=== PATIENT | female | born 1970 | race African-American/Black ===

== ENCOUNTER 2016-11-15 13:49 | Emergency (ER) | payer BC ==
[~2016-11-15] VITALS: Ht 160 cm; Wt 130.0 kg
[~2016-11-15 13:49] MED LIST: ACET-1145 PO; ASPI-650 PO; BENA40TA41 PO; CARV25TA79 PO; CPR3OO3.5 RIGHT EYE; CYCL-319 PO; FAMO-18 PO; FLUT16SP24 NASAL; IBUP-1542 PO; LORA-186 PO; LORA-407; LOVA20TA PO; NAPR-260 PO; PARO40TA48 PO; SODI44SP11 NS; TRAM50TA2 PO
[2016-11-15 14:04] VITALS: Ht 160 cm; Wt 130.0 kg
--- NOTE | 2016-11-15 16:53 | ERD ---
ER Documentation Chief Complaint Date/Time DATE: 11/15/16 TIME: 16:33 Chief Complaint SHARP SHOOTING PAIN ON THE RIGHT KNEE HPI This is a 46-year-old female who presents to the ED with right knee pain since this morning. Right knee pain radiates from the lateral to posterior region of the knee. Patient states 1 week ago she heard a popping and crunching noise in the right knee but did not have pain until today. Right knee pain is a 10 out of 10, constant pain since she woke up this morning. Sitting down and resting relieves the pain. She took ibuprofen 1200 mg this morning for pain relief which did not help. 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 Patient also has a limp with walking. Denies fever, headache, back, ankle and hip pain. ROS All systems reviewed and are negative except as per history of present illness. Medications Home Meds Active Scripts Naproxen* (Naprosyn*) 500 Mg Tablet, 500 MG PO BID Y for PAIN AND/OR INFLAMMATION, #30 TAB Prov:AMIE POSEY PA-C 11/15/16 Ibuprofen* (Ibuprofen*) 600 Mg Tablet, 600 MG PO Q8 for PAIN AND/OR INFLAMMATION , #30 TAB Prov:HARRIET IZAGUIRRE MD 07/24/16 Paroxetine Hcl* (Paxil*) 40 Mg Tablet, 40 MG PO QAM, #30 TAB Prov:HARRIET IZAGUIRRE MD 07/24/16 Famotidine* (Pepcid*) 20 Mg Tablet, 20 MG PO BID for 4 Days, TAB Prov:NICOLE STARK PA-C 07/20/16 Naproxen* (Naprosyn*) 500 Mg Tablet, 500 MG PO BID Y for PAIN AND/OR INFLAMMATION, #30 TAB Prov:NICOLE STARK PA-C 07/20/16 Ibuprofen* (Motrin*) 600 Mg Tab, 600 MG PO Q6, #30 TAB Prov:LEIDA LANDERS PA-C 06/03/16 Ciprofloxacin Opht* (Ciloxan*) 0.3%-3.5 Opht Oint, 2 DROP RIGHT EYE TID for 5 Days, EA Prov:LEIDA LANDERS PA-C 06/03/16 Ibuprofen* (Motrin*) 600 Mg Tab, 600 MG PO Q6, #30 TAB Prov:JAVIER REYNA C 01/31/16 Tramadol HCl (Tramadol HCl) 50 Mg Tablet, 50 MG PO Q4 Y for PAIN, #20 TAB Prov:JAVIER REYNA C 01/31/16 Cyclobenzaprine Hcl* (Cyclobenzaprine Hcl*) 10 Mg Tablet, 10 MG PO TID, #15 TAB Prov:SUMAN VASQUEZ CHEMICAL LABORATORY TESTER 07/26/15 Sodium Chloride (Saline Nasal [place]) 45 Ml [place], 1 SPRAY NS q1 Y for congestion , #1 BOTTLE Prov:SUMAN VASQUEZ CHEMICAL LABORATORY TESTER 01/24/15 Fluticasone Propionate* (Flonase* Nasal) 50 Mcg/[place] - 16 Gm [place].susp, 1 SPRAY NASAL DAILY, #1 BOTTLE TO EACH NOSTRIL Prov:SUMAN VASQUEZ CHEMICAL LABORATORY TESTER 01/24/15 Loratadine* (Claritin*) 10 Mg Tablet, 10 MG PO DAILY, #30 TAB Prov:SUMAN VASQUEZ CHEMICAL LABORATORY TESTER 01/24/15 Reported Medications Acetaminophen-Codeine (Tylenol With Codeine #3 Tablet) 1 Tab Tablet, 300 MG PO PRN 05/01/13 Loratadine (Claritin) 10 Mg Tablet, DAILY 09/25/12 Carvedilol* (Carvedilol*) 25 Mg Tablet, 25 MG PO DAILY, 0 Refills 11/20/11 Aspirin (Aspirin) 81 Mg Tablet, 81 MG PO DAILY 11/20/11 Lovastatin* (Lovastatin*) 20 Mg Tablet, 20 MG PO DAILY 08/04/11 Benazepril Hcl* (Benazepril Hcl*) 40 Mg Tablet, 40 MG PO DAILY 08/04/11 Allergies Allergies: Coded Allergies: No Known Allergy (Verified , 07/24/16) PMhx/Soc History of Surgery: Yes (, L. Ankle) Anesthesia Reaction: No Hx Neurological Disorder: No Hx Respiratory Disorders: No Hx Cardiac Disorders: No Hx Psychiatric Problems: No Hx Miscellaneous Medical Probl: No Hx Alcohol Use: No Hx Substance Use: No Hx Tobacco Use: No FmHx Noncontributory to chief complaint. Physical Exam Vitals Vital Signs Date Time Temp Pulse Resp B/P Pulse Ox O2 Delivery O2 Flow Rate FiO2 11/15/16 14:04 98.4 99 18 123/80 98 Physical Exam Const: [id number], well-nourished. In no acute distress. Head: Atraumatic, normocephalic Eyes: Normal Conjunctiva without injection. No purulent discharge. PERRLA. EOMI ENT: Normal external ear. Ear canal without erythema. Tympanic membrane pearly [place] without effusion or bulging. Nasal canal clear with normal turbinates. Moist oropharynx without tonsillar exudates. Non-erythematous pharynx. Uvula midline. No drooling. No trismus. Neck: No cervical midline tenderness. Full range of motion. No meningismus. No cervical lymphadenopathy. No JVD. Resp: Clear to auscultation bilaterally. No wheezing, rhonchi, rales, or crackles. No accessory muscle use. No retractions. Cardio: Regular rate and rhythm. No murmurs, rubs or gallops. Abd: Soft, non tender, non distended. Normal bowel sounds. No palpable masses. No rebound tenderness. No guarding. Negative McBurney's Point. Negative Smyth's Sign. Skin: Normal skin turgor. No petechiae or rashes Back: No midline tenderness. No CVA tenderness. Ext: No cyanosis, or edema. Distal pulses intact bilaterally. Musculoskeletal: Full ROM 0 to 140 degrees bilateral knees, right knee tender to palpation at the lateral joint line to the posterior region, no erythema, no edema, no ecchymosis, no open wounds, negative Nadeen's, negative anterior drawer test, negative posterior drawer test, negative Destini's sign. Neur: Awake and alert. Normal gait. Normal coordination. Cranial Nerves II- VII intact. Normal finger to nose. Muscle strength 5/5. Sensation intact. Psych: Normal Mood and Affect Procedures/MDM This is a 38-year-old female who presents with right knee pain since this morning. Radiograph of the right knee shows: PROCEDURE: Right knee series. CLINICAL INDICATION: Right knee pain TECHNIQUE: Three views of the right knee are available for review. COMPARISON: Right knee series 01/31/2016 FINDINGS: There is normal mineralization and alignment of the bones of the right knee. No acute fracture or dislocation is identified. There is tricompartmental joint space narrowing and osteophyte formation. There is suggestion of a small joint effusion, similar compared to prior study. Overlying soft tissues are otherwise unremarkable. IMPRESSION: 1. 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 2. Suggested small joint effusion. A right knee immobilizer was ordered for patient however we do not have the resource at this time. Therefore an Josué wrap was ordered to further treat patient. Recommend patient to help with ambulation. Splint Assessment: Neurovascularly intact pre and post splint placement with good fit. Patient's extremity symptoms have stabilized while they have been evaluated in the department and are appropriate for outpatient follow up. No evidence of fractures, dislocations, compartment syndrome, neurologic injury, vascular injury, open joint, open fracture, tendon laceration, septic arthritis, osteomyelitis, DVT, foreign body, or other emergent conditions. Discharge medications: Naproxen Follow up with orthopedic physician in 1-2 days for further evaluation with an MRI. Instructed patient to return to the ED sooner for any worsening symptoms. Patient's questions were answered. Patient understood and agreed with discharge plan. Patient discharged stable. Departure Diagnosis: Primary Impression: Knee pain Laterality: right Chronicity: acute Qualified Code: M25.561 - Acute pain of right knee Condition: Good AMIE POSEY PA-C Nov 15, 2016 16:46
--- NOTE | 2016-11-15 16:58 | RADRPT ---
PROCEDURE: Right knee series. CLINICAL INDICATION: Right knee pain TECHNIQUE: Three views of the right knee are available for review. COMPARISON: Right knee series 01/31/2016 FINDINGS: There is normal mineralization and alignment of the bones of the right knee. No acute fracture or d islocation is identified. There is tricompartmental joint space narrowing and osteophyte formation. There is suggestion of a small joint effusion, similar compared to prior study. Overlying soft ti ssues are otherwise unremarkable. IMPRESSION: 1. 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 2. Suggested small joint effusion. RPTAT: KK .Tonio Gibson MD, MD Date Time Electronically viewed and signed by .Tonio Gibson MD, on 11/15/2016 16:57 .B/
[2016-11-15] MEDS ORDERED: NAPR-260 PO (17:46)
== END 2016-11-15 18:08 | disposition home or self-care (01) ==
LOC: FTE 13:49
DX: S89.91XA Unspecified injury of right lower leg, initial encounter (principal); F17.210 Nicotine dependence, cigarettes, uncomplicated; X50.1XXA Overexertion from prolonged static or awkward postures, initial encounter; Y92.9 Unspecified place or not applicable; Z79.82 Long term (current) use of aspirin
CPT/HCPCS: 73562

== ENCOUNTER 2016-11-21 09:22 | Emergency (ER) | payer BC ==
[~2016-11-21] VITALS: Wt 113.6 kg
[2016-11-21] MEDS ORDERED: ONDANSETRON (ODT) 4 MG TAB ODT STA (10:31)
[2016-11-21] MEDS ORDERED: ORPH100T PO (10:57)
[2016-11-21] MEDS ORDERED: HYDR-906 PO (10:59)
[2016-11-21] MEDS ORDERED: MED4DP PO (10:59)
[2016-11-21] MEDS ORDERED: morphine 10 MG INJ IM ONE (11:00)
[2016-11-21] MEDS ORDERED: IBUP-1542 PO (11:00)
[2016-11-21 11:23] VITALS: BP 149/78; PULSE 78; RESP 18; TEMP 98.1
--- NOTE | 2016-11-21 13:06 | ERD ---
ER Documentation Chief Complaint Date/Time DATE: 11/21/16 TIME: 13:03 Chief Complaint legt leg non traumatic pain for the past few days. HPI This is a 46-year-old female presents to the ER with left leg pain that started yesterday. Patient recently had right knee pain and states she has been bearing more weight on her left leg. Pain extends from her buttocks down to the back of her knee. She denies any calf pain or calf swelling or redness. Pain is severe and worse whenever she lays down or walks. Patient denies any new trauma. She denies any numbness or tingling of her leg. 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 ROS 12 point review of systems was done, all negative except per HPI. Medications Home Meds Active Scripts Ibuprofen* (Ibuprofen*) 600 Mg Tablet, 600 MG PO Q6 for 3 Days, TAB Prov:JAVIER REYNA 11/21/16 Hydrocodone/Acetaminophen ([place] 5-325 Tablet) 1 Each Tablet, 1 TAB PO Q6H Y for PAIN, #10 TAB Prov:JAVIER REYNA 11/21/16 Methylprednisolone* (Medrol* DOSE PACK) 4 Mg/Dose-Pack Tab.ds.pk, 4 MG PO . DIRECTED for 6 Days, PACKET Prov:JAVIER REYNA 11/21/16 Orphenadrine Citrate (Norflex) 100 Mg Tablet.sa, 100 MG PO BID for 5 Days, TAB.SA Prov:JAVIER REYNA 11/21/16 Naproxen* (Naprosyn*) 500 Mg Tablet, 500 MG PO BID Y for PAIN AND/OR INFLAMMATION, #30 TAB Prov:AMIE POSEY PA-C 11/15/16 Ibuprofen* (Ibuprofen*) 600 Mg Tablet, 600 MG PO Q8 for PAIN AND/OR INFLAMMATION , #30 TAB Prov:HARRIET IZAGUIRRE MD 07/24/16 Paroxetine Hcl* (Paxil*) 40 Mg Tablet, 40 MG PO QAM, #30 TAB Prov:HARRIET IZAGUIRRE MD 07/24/16 Famotidine* (Pepcid*) 20 Mg Tablet, 20 MG PO BID for 4 Days, TAB Prov:NICOLE STARK PA-C 07/20/16 Naproxen* (Naprosyn*) 500 Mg Tablet, 500 MG PO BID Y for PAIN AND/OR INFLAMMATION, #30 TAB Prov:NICOLE STARK PA-C 07/20/16 Ibuprofen* (Motrin*) 600 Mg Tab, 600 MG PO Q6, #30 TAB Prov:LEIDA LANDERS PA-C 06/03/16 Ciprofloxacin Opht* (Ciloxan*) 0.3%-3.5 Opht Oint, 2 DROP RIGHT EYE TID for 5 Days, EA Prov:LEIDA LANDERS PA-C 06/03/16 Ibuprofen* (Motrin*) 600 Mg Tab, 600 MG PO Q6, #30 TAB Prov:JAVIER REYNA 01/31/16 Tramadol HCl (Tramadol HCl) 50 Mg Tablet, 50 MG PO Q4 Y for PAIN, #20 TAB Prov:JAVIER REYNA 01/31/16 Cyclobenzaprine Hcl* (Cyclobenzaprine Hcl*) 10 Mg Tablet, 10 MG PO TID, #15 TAB Prov:SUMAN VASQUEZ CREDIT UNION FIELD EXAMINER 07/26/15 Sodium Chloride (Saline Nasal [place]) 45 Ml [place], 1 SPRAY NS q1 Y for congestion , #1 BOTTLE Prov:SUMAN VASQUEZ CREDIT UNION FIELD EXAMINER 01/24/15 Fluticasone Propionate* (Flonase* Nasal) 50 Mcg/[place] - 16 Gm [place].susp, 1 SPRAY NASAL DAILY, #1 BOTTLE TO EACH NOSTRIL Prov:SUMAN VASQUEZ. CREDIT UNION FIELD EXAMINER 01/24/15 Loratadine* (Claritin*) 10 Mg Tablet, 10 MG PO DAILY, #30 TAB Prov:SUMAN VASQUEZ CREDIT UNION FIELD EXAMINER 01/24/15 Reported Medications Acetaminophen-Codeine (Tylenol With Codeine #3 Tablet) 1 Tab Tablet, 300 MG PO PRN 05/01/13 Loratadine (Claritin) 10 Mg Tablet, DAILY 09/25/12 Carvedilol* (Carvedilol*) 25 Mg Tablet, 25 MG PO DAILY, 0 Refills 11/20/11 Aspirin (Aspirin) 81 Mg Tablet, 81 MG PO DAILY 11/20/11 Lovastatin* (Lovastatin*) 20 Mg Tablet, 20 MG PO DAILY 08/04/11 Benazepril Hcl* (Benazepril Hcl*) 40 Mg Tablet, 40 MG PO DAILY 08/04/11 Allergies Allergies: Coded Allergies: No Known Allergy (Verified , 07/24/16) PMhx/Soc History of Surgery: Yes (, L. Ankle) Anesthesia Reaction: No Hx Neurological Disorder: No Hx Respiratory Disorders: No Hx Cardiac Disorders: No Hx Psychiatric Problems: No Hx Miscellaneous Medical Probl: No Hx Alcohol Use: Yes Hx Substance Use: No Hx Tobacco Use: No Smoking Status: Never smoker Physical Exam Vitals Vital Signs Date Time Temp Pulse Resp B/P Pulse Ox O2 Delivery O2 Flow Rate FiO2 11/21/16 11:23 98.1 78 18 149/78 98 Room Air 11/21/16 09:25 98.5 95 21 159/98 97 Physical Exam GENERAL: The patient is well developed and appropriate for usual state of health , in no apparent distress. HEENT: Atraumatic CHEST: Clear to auscultation bilaterally. There are no rales, wheezes or rhonchi. HEART: Regular rate and rhythm. No murmurs, clicks, rubs or gallops. BACK: No midline or flank tenderness. EXTREMITIES: patient is TTP along left buttock and down left leg down to the back of the knee. Normal strength and sensation. Neurovascularly intact. Negative straight leg test. NEURO: Alert and oriented. SKIN: There is no apparent rash or petechia. The skin is warm and dry. Results 24 hrs Current Medications Medications (Trade) Dose Ordered Sig/Rodney Route PRN Reason Start Time Stop Time Status Last Admin Dose Admin Morphine Sulfate (morphine) 6 mg ONCE ONCE IM 11/21/16 11:00 11/21/16 11:01 DC 11/21/16 10:48 Ondansetron HCl (Zofran Odt) 4 mg ONCE STAT ODT 11/21/16 10:31 11/21/16 10:32 DC 11/21/16 10:47 Procedures/MDM This is a 46-year-old female presents to the ER with left leg pain. This is likely secondary to overuse that she has been relying on her leg since her right knee has been hurting. Patient is afebrile and well-appearing. She is neurovascularly intact and has normal range of motion of her left leg. Her physical examination is benign. Patient will be sent home with Norflex, [place], steroids, ibuprofen. Patient is to follow-up with her PCP within 1-2 days or return to ER sooner if symptoms worsen. My medical decision making was shared with the patient she understands and agrees with plan. Departure Diagnosis: Primary Impression: Leg pain, left Condition: Stable Patient Instructions: Possible Causes of Low Back or Leg Pain Additional Instructions: Call your primary care doctor TOMORROW for an appointment during the next 1-2 days.See the doctor sooner or return here if your condition worsens before your appointment time. JAVIER REYNA Nov 21, 2016 13:06
== END 2016-11-21 11:24 | disposition home or self-care (01) ==
LOC: FTE 09:22
DX: M79.605 Pain in left leg (principal); Z79.82 Long term (current) use of aspirin
CPT/HCPCS: 96372; 99284; J2270; Z7610

== ENCOUNTER 2016-11-26 11:14 | Emergency (ER) | payer BC ==
[~2016-11-26] VITALS: Ht 162.6 cm; Wt 122.0 kg
[~2016-11-26 11:14] MED LIST changes: +HYDR-906 PO; +MED4DP PO; +ORPH100T PO
[2016-11-26 11:17] VITALS: Ht 162.6 cm; Wt 122.0 kg
[2016-11-26] MEDS ORDERED: KETOROLAC 60 MG INJ IM STA (12:12)
[2016-11-26] MEDS ORDERED: IBUP800T25 PO (12:15)
[2016-11-26] MEDS ORDERED: CYCL-319 PO (12:15)
[2016-11-26] MEDS ORDERED: TRAM50TA2 PO (12:15)
--- NOTE | 2016-11-26 12:18 | ERD ---
ER Documentation Chief Complaint Date/Time DATE: 11/26/16 TIME: 12:16 Chief Complaint back pain radiating to lt leg x 1 week , pain meds not working HPI This 38-year-old female complains of low back pain rating to the leg last week. She was seen here 4 days ago prescribed a short course of [place], Norflex and a Medrol Dosepak. She states that the medication is not helping. 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 Her primary doctor ordered a lumbar spine x-ray and she is awaiting the results. She complains of persistent pain with some numbness in the lateral aspect of her left calf. She denies any bowel bladder incontinence or saddle anesthesia or history of trauma or fevers or urinary complaints. She has a history right knee pain and has a scheduled MRI and is awaiting physical therapy for her back as well. She denies any fevers. ROS All systems reviewed and are negative except as per history of present illness. Medications Home Meds Active Scripts Diazepam* (Diazepam*) 10 Mg Tablet, 10 MG PO TID, #14 TAB Prov:MICHAEL THORNE MD 11/26/16 Tramadol HCl (Tramadol HCl) 50 Mg Tablet, 50 MG PO Q4 Y for PAIN, #20 TAB Prov:MICHAEL THORNE MD 11/26/16 Ibuprofen* (Motrin*) 800 Mg Tab, 800 MG PO Q6, #30 TAB Prov:MICHAEL THORNE MD 11/26/16 Ibuprofen* (Ibuprofen*) 600 Mg Tablet, 600 MG PO Q6 for 3 Days, TAB Prov:AXELJAVIER C 11/21/16 Hydrocodone/Acetaminophen ([place] 5-325 Tablet) 1 Each Tablet, 1 TAB PO Q6H Y for PAIN, #10 TAB Prov:AXELCANELOJAVIER C 11/21/16 Methylprednisolone* (Medrol* DOSE PACK) 4 Mg/Dose-Pack Tab.ds.pk, 4 MG PO . DIRECTED for 6 Days, PACKET Prov:AXELJAVIER C 11/21/16 Orphenadrine Citrate (Norflex) 100 Mg Tablet.sa, 100 MG PO BID for 5 Days, TAB.SA Prov:AXELJAVIER C 11/21/16 Naproxen* (Naprosyn*) 500 Mg Tablet, 500 MG PO BID Y for PAIN AND/OR INFLAMMATION, #30 TAB Prov:AMIE POSEY PA-C 11/15/16 Ibuprofen* (Ibuprofen*) 600 Mg Tablet, 600 MG PO Q8 for PAIN AND/OR INFLAMMATION , #30 TAB Prov:HARRIET IZAGUIRRE MD 07/24/16 Paroxetine Hcl* (Paxil*) 40 Mg Tablet, 40 MG PO QAM, #30 TAB Prov:HARRIET IZAGUIRRE MD 07/24/16 Famotidine* (Pepcid*) 20 Mg Tablet, 20 MG PO BID for 4 Days, TAB Prov:NICOLE STARK PA-C 07/20/16 Naproxen* (Naprosyn*) 500 Mg Tablet, 500 MG PO BID Y for PAIN AND/OR INFLAMMATION, #30 TAB Prov:NICOLE STARK PA-C 07/20/16 Ibuprofen* (Motrin*) 600 Mg Tab, 600 MG PO Q6, #30 TAB Prov:LEIDA LANDERS PA-C 06/03/16 Ciprofloxacin Opht* (Ciloxan*) 0.3%-3.5 Opht Oint, 2 DROP RIGHT EYE TID for 5 Days, EA Prov:LEIDA LANDERS PA-C 06/03/16 Ibuprofen* (Motrin*) 600 Mg Tab, 600 MG PO Q6, #30 TAB Prov:JAVIER REYNA 01/31/16 Tramadol HCl (Tramadol HCl) 50 Mg Tablet, 50 MG PO Q4 Y for PAIN, #20 TAB Prov:JAVIER REYNA 01/31/16 Cyclobenzaprine Hcl* (Cyclobenzaprine Hcl*) 10 Mg Tablet, 10 MG PO TID, #15 TAB Prov:SUMAN VASQUEZ NP 07/26/15 Sodium Chloride (Saline Nasal [place]) 45 Ml [place], 1 SPRAY NS q1 Y for congestion , #1 BOTTLE Prov:SMUAN VASQUEZ INTERN ARCHITECT 01/24/15 Fluticasone Propionate* (Flonase* Nasal) 50 Mcg/[place] - 16 Gm [place].susp, 1 SPRAY NASAL DAILY, #1 BOTTLE TO EACH NOSTRIL Prov:SUMAN VASQUEZ NP 01/24/15 Loratadine* (Claritin*) 10 Mg Tablet, 10 MG PO DAILY, #30 TAB Prov:SUMAN VASQUEZ INTERN ARCHITECT 01/24/15 Reported Medications Acetaminophen-Codeine (Tylenol With Codeine #3 Tablet) 1 Tab Tablet, 300 MG PO PRN 05/01/13 Loratadine (Claritin) 10 Mg Tablet, DAILY 09/25/12 Carvedilol* (Carvedilol*) 25 Mg Tablet, 25 MG PO DAILY, 0 Refills 11/20/11 Aspirin (Aspirin) 81 Mg Tablet, 81 MG PO DAILY 11/20/11 Lovastatin* (Lovastatin*) 20 Mg Tablet, 20 MG PO DAILY 08/04/11 Benazepril Hcl* (Benazepril Hcl*) 40 Mg Tablet, 40 MG PO DAILY 08/04/11 Discontinued Scripts Cyclobenzaprine Hcl* (Cyclobenzaprine Hcl*) 10 Mg Tablet, 10 MG PO TID, #30 TAB Prov:MICHAEL THORNE MD 11/26/16 Allergies Allergies: Coded Allergies: No Known Allergy (Verified , 07/24/16) PMhx/Soc History of Surgery: Yes (, L. Ankle) Anesthesia Reaction: No Hx Neurological Disorder: No Hx Respiratory Disorders: No Hx Cardiac Disorders: No Hx Psychiatric Problems: No Hx Miscellaneous Medical Probl: No Hx Alcohol Use: Yes Hx Substance Use: No Hx Tobacco Use: No Smoking Status: Never smoker Physical Exam Vitals Vital Signs Date Time Temp Pulse Resp B/P Pulse Ox O2 Delivery O2 Flow Rate FiO2 11/26/16 11:17 98.6 76 18 164/100 100 Physical Exam Const: [] Alert, [id number] per Head: Atraumatic Eyes: Normal Conjunctiva ENT: Normal External Ears, Nose and Mouth. Neck: Full range of motion..~ No meningismus. Resp: Clear to auscultation bilaterally Cardio: Regular rate and rhythm, no murmurs Abd: Soft, non tender, non distended. Normal bowel sounds Skin: No petechiae or rashes Back: No midline or flank tenderness. There is tenderness in the left L4-5 paraspinous muscles. Positive straight leg raise on the left. Ext: No cyanosis, or edema Neur: Awake and alert Psych: Normal Mood and Affect Results 24 hrs Current Medications Medications (Trade) Dose Ordered Sig/Rodney Route PRN Reason Start Time Stop Time Status Last Admin Dose Admin Ketorolac Tromethamine (Toradol) 60 mg ONCE STAT IM 4/3/17 12:12 11/26/16 12:13 DC Procedures/MDM Patient presents with nontraumatic low back pain radiating to the left leg consistent with sciatica. Patient was given Toradol 60 mg IM. Review the [facility] database shows no active narcotic prescription. Patient appears to be following through with outpatient recommendations and referrals. Patient was advised on obesity as contributing factor low back pain recommend weight loss. Patient is advised to follow-up with primary doctor for further evaluation management and we will discharge home the course of tramadol, Flexeril and ibuprofen. Patient was also given instructions on back exercises. Patient has no signs or symptoms to suggest epidural abscess, genitourinary etiology, neurologic deficit. Departure Diagnosis: Primary Impression: Sciatica Laterality: left Qualified Code: M54.32 - Sciatica of left side Condition: Stable Patient Instructions: Understanding Sciatica, Back Exercises, Lumbar Additional Instructions: Continue follow-up with orthopedist and primary doctor for further evaluation treatment and therapy. Recommend stretching at home. MICHAEL THORNE MD Nov 26, 2016 12:18
[2016-11-26] MEDS ORDERED: DIAZ10TA4 PO (12:24)
== END 2016-11-26 12:56 | disposition home or self-care (01) ==
LOC: FTE 11:14
DX: M54.32 Sciatica, left side (principal)
CPT/HCPCS: 96372; 99284; J1885

== ENCOUNTER 2017-03-13 16:29 | Emergency (ER) | payer BC ==
[~2017-03-13] VITALS: Ht 162.6 cm; Wt 118.0 kg
[~2017-03-13 16:29] MED LIST changes: +DIAZ10TA4 PO; -FAMO-18 PO; +FAMO-96 PO; +IBUP800T25 PO
[2017-03-13 16:32] VITALS: Ht 162.6 cm; Wt 118.0 kg
[2017-03-13] MEDS ORDERED: TETRACAINE 0.5% 4 ML OPH RIGHT EYE ONE (19:00)
[2017-03-13] MEDS ORDERED: FLUORESCEIN STRIP RIGHT EYE ONE (19:00)
[2017-03-13] MEDS ORDERED: VIGA BOTH EYES (19:36)
--- NOTE | 2017-03-13 20:15 | ERD ---
ER Documentation Chief Complaint Date/Time DATE: 03/13/17 TIME: 20:09 Chief Complaint RT EYE IRRITATION , PAIN HPI 46-year-old female patient with no significant past medical history is a contact wearer and reports right eye irritation and sandpaper like sensation that started earlier today. Reports that she has been wearing the same contacts for 1 month. States that she sleeps with her contacts. Denies any vision loss, eye pain, fever, chills, nausea, headache, weakness. Denies wearing glasses. States that the last time she saw a gatekeeper was 6 months ago. ROS All systems reviewed and are negative except as per history of present illness. Medications Home Meds Active Scripts Moxifloxacin Hcl* (Vigamox*) 0.5% - 3 Ml Opht, 2 DROP BOTH EYES TID for 7 Days, EA Instill 1-2 drops every 2 hours while awake for 2 days, then every 4-8 hours for 5 days. Prov:AMIE POSEY PA-C 03/13/17 Diazepam* (Diazepam*) 10 Mg Tablet, 10 MG PO TID, #14 TAB Prov:MICHAEL THORNE MD 11/26/16 Tramadol HCl (Tramadol HCl) 50 Mg Tablet, 50 MG PO Q4 Y for PAIN, #20 TAB Prov:MICHAEL THORNE MD 11/26/16 Ibuprofen* (Motrin*) 800 Mg Tab, 800 MG PO Q6, #30 TAB Prov:MICHAEL THORNE MD 11/26/16 Ibuprofen* (Ibuprofen*) 600 Mg Tablet, 600 MG PO Q6 for 3 Days, TAB Prov:JAVIER REYNA 11/21/16 Hydrocodone/Acetaminophen ([place] 5-325 Tablet) 1 Each Tablet, 1 TAB PO Q6H Y for PAIN, #10 TAB Prov:JAVIER REYNA 11/21/16 Methylprednisolone* (Medrol* DOSE PACK) 4 Mg/Dose-Pack Tab.ds.pk, 4 MG PO . DIRECTED for 6 Days, PACKET Prov:JAVIER REYNA 11/21/16 Orphenadrine Citrate (Norflex) 100 Mg Tablet.sa, 100 MG PO BID for 5 Days, TAB.SA Prov:JAVIER REYNA 11/21/16 Naproxen* (Naprosyn*) 500 Mg Tablet, 500 MG PO BID Y for PAIN AND/OR INFLAMMATION, #30 TAB Prov:AMIE POSEYC 11/15/16 Ibuprofen* (Ibuprofen*) 600 Mg Tablet, 600 MG PO Q8 for PAIN AND/OR INFLAMMATION , #30 TAB Prov:HARRIET IZAGUIRRE MD 07/24/16 Paroxetine Hcl* (Paxil*) 40 Mg Tablet, 40 MG PO QAM, #30 TAB Prov:HARRIET IZAGUIRRE MD 07/24/16 Famotidine* (Pepcid*) 20 Mg Tablet, 20 MG PO BID for 4 Days, TAB Prov:NICOLE STARKC 07/20/16 Naproxen* (Naprosyn*) 500 Mg Tablet, 500 MG PO BID Y for PAIN AND/OR INFLAMMATION, #30 TAB Prov:NICOLE STARK PA-C 07/20/16 Ibuprofen* (Motrin*) 600 Mg Tab, 600 MG PO Q6, #30 TAB Prov:LEIDA LANDERS PA-C 06/03/16 Ciprofloxacin Opht* (Ciloxan*) 0.3%-3.5 Opht Oint, 2 DROP RIGHT EYE TID for 5 Days, EA Prov:LEIDA LANDERS PA-C 06/03/16 Ibuprofen* (Motrin*) 600 Mg Tab, 600 MG PO Q6, #30 TAB Prov:JAVIER REYNA 01/31/16 Tramadol HCl (Tramadol HCl) 50 Mg Tablet, 50 MG PO Q4 Y for PAIN, #20 TAB Prov:JAVIER REYNA 01/31/16 Cyclobenzaprine Hcl* (Cyclobenzaprine Hcl*) 10 Mg Tablet, 10 MG PO TID, #15 TAB Prov:SUMAN VASQUEZ NP 07/26/15 Sodium Chloride (Saline Nasal [place]) 45 Ml [place], 1 SPRAY NS q1 Y for congestion , #1 BOTTLE Prov:SUMAN VASQUEZ SENIOR QA AUTOMATION ENGINEER 01/24/15 Fluticasone Propionate* (Flonase* Nasal) 50 Mcg/[place] - 16 Gm [place].susp, 1 SPRAY NASAL DAILY, #1 BOTTLE TO EACH NOSTRIL Prov:SUMAN VASQUEZ NP 01/24/15 Loratadine* (Claritin*) 10 Mg Tablet, 10 MG PO DAILY, #30 TAB Prov:SUMAN VASQUEZ SENIOR QA AUTOMATION ENGINEER 01/24/15 Reported Medications Acetaminophen-Codeine (Tylenol With Codeine #3 Tablet) 1 Tab Tablet, 300 MG PO PRN 05/01/13 Loratadine (Claritin) 10 Mg Tablet, DAILY 09/25/12 Carvedilol* (Carvedilol*) 25 Mg Tablet, 25 MG PO DAILY, 0 Refills 11/20/11 Aspirin (Aspirin) 81 Mg Tablet, 81 MG PO DAILY 11/20/11 Lovastatin* (Lovastatin*) 20 Mg Tablet, 20 MG PO DAILY 08/04/11 Benazepril Hcl* (Benazepril Hcl*) 40 Mg Tablet, 40 MG PO DAILY 08/04/11 Allergies Allergies: Coded Allergies: No Known Allergy (Verified , 07/24/16) PMhx/Soc History of Surgery: Yes (, L. Ankle) Anesthesia Reaction: No Hx Neurological Disorder: No Hx Respiratory Disorders: No Hx Cardiac Disorders: No Hx Psychiatric Problems: No Hx Miscellaneous Medical Probl: No Hx Alcohol Use: Yes (socially) Hx Substance Use: No Hx Tobacco Use: No Smoking Status: Never smoker Physical Exam Vitals Vital Signs Date Time Temp Pulse Resp B/P Pulse Ox O2 Delivery O2 Flow Rate FiO2 03/13/17 16:32 98.0 92 18 125/79 98 Physical Exam Const: Bed-[id number], well-nourished. In no acute distress. Head: Atraumatic, normocephalic Eyes: Right eye conjunctiva with slight injection noted. Normal left eye with contact lenses noted.. No purulent discharge. PERRLA. EOMI ENT: Normal external ear. Ear canal without erythema. Tympanic membrane pearly payton without effusion or bulging. Nasal canal clear with normal turbinates. Moist oropharynx without tonsillar exudates. Non-erythematous pharynx. Uvula midline. No drooling. No trismus. Neck: No cervical midline tenderness. Full range of motion. No meningismus. No cervical lymphadenopathy. No JVD. Resp: Clear to auscultation bilaterally. No wheezing, rhonchi, rales, or crackles. No accessory muscle use. No retractions. Cardio: Regular rate and rhythm. No murmurs, rubs or gallops. Skin: Normal skin turgor. No petechiae or rashes Ext: No cyanosis, or edema. Distal pulses intact bilaterally. Neur: Awake and alert. Normal gait. Normal coordination. Cranial Nerves II- VII intact. Normal finger to nose. Muscle strength 5/5. Sensation intact. Psych: Normal Mood and Affect Results 24 hrs Current Medications Medications (Trade) Dose Ordered Sig/Rodney Route PRN Reason Start Time Stop Time Status Last Admin Dose Admin Tetracaine HCl (Tetracaine 0.5% Steri-Unit Kely) 1 drop ONCE ONCE RIGHT EYE 03/13/17 19:00 03/13/17 19:01 DC Fluorescein Sodium (Lvxkf-L-Cugmi) 1 strip ONCE ONCE RIGHT EYE 03/13/17 19:00 03/13/17 19:01 DC Procedures/MDM 38-year-old female patient with no sniffing a past medical history presents the ED wearing contacts and has right eye irritation. Patient is afebrile and nontoxic-appearing. Patient has normal vital signs. Eye Exam w/ Wood's lamp: Visual Acuity: Bilateral 20/25 Left 20/25 Right 20/100 Visual Kirk: Intact in all four quadrants bilaterally Lac ducts/glands: No swelling Lids w/ evertion: Normal, no foreign body Conj/Latty: Clear, slight fluorescein uptake in the lateral aspect of patient's right cornea. Anterior Chamber: Clear Patient's ocular symptoms have stabilized while they have been evaluated in the department and are appropriate for outpatient work up. Patient will be treated for a possible corneal abrasion vs ulcer. Low suspicion for ruptured globe, retinal detachment, periorbital cellulitis, acute angle closure glaucoma, deep space infection, iritis, traumatic hyphema, conjunctivitis, subconjunctival hemorrhage, pterygium, hypopyon, blepharitis, hordeolum, chalazion, or other emergent conditions. Discharge medications: Vigamox Strictly instructed patient to follow up with an bevel mill operator within 24 hours. Patient was strictly instructed to remove her contacts of her left eye tonight when she goes to bed and to follow-up with an bevel mill operator first thing in the morning. Instructed patient to return to the ED for any worsening symptoms. Patient is hemodynamically stable. Patient's questions were answered. Patient understood and agreed with discharge plan. Departure Diagnosis: Primary Impression: Corneal abrasion due to contact lens Laterality: right Qualified Code: H18.821 - Corneal abrasion due to contact lens, right Condition: Stable Patient Instructions: Corneal Abrasion, Corneal Injury, Contact Lens Referrals: [facility] YOU HAVE RECEIVED A MEDICAL SCREENING EXAM AND THE RESULTS INDICATE THAT YOU DO NOT HAVE A CONDITION THAT REQUIRES URGENT TREATMENT IN THE EMERGENCY DEPARTMENT. FURTHER EVALUATION AND TREATMENT OF YOUR CONDITION CAN WAIT UNTIL YOU ARE SEEN IN YOUR DOCTORS OFFICE WITHIN THE NEXT 1-2 DAYS. IT IS YOUR RESPONSIBILITY TO MAKE AN APPOINTMENT FOR FOLOW-UP CARE. IF YOU HAVE A PRIMARY DOCTOR --you should call your primary doctor and schedule an appointment IF YOU DO NOT HAVE A PRIMARY DOCTOR YOU CAN CALL OUR PHYSICIAN REFERRAL HOTLINE AT IF YOU CAN NOT AFFORD TO SEE A PHYSICIAN YOU CAN CHOSE FROM THE FOLLOWING [facility] [address] [facility]. [facility] [address] [employer] [facility] [address] [facility] [address] [facility] [facility] [address] [facility]. [facility] [address] [facility]. [facility] YOU HAVE RECEIVED A MEDICAL SCREENING EXAM AND THE RESULTS INDICATE THAT YOU DO NOT HAVE A CONDITION THAT REQUIRES URGENT TREATMENT IN THE EMERGENCY DEPARTMENT. FURTHER EVALUATION AND TREATMENT OF YOUR CONDITION CAN WAIT UNTIL YOU ARE SEEN IN YOUR DOCTORS OFFICE WITHIN THE NEXT 1-2 DAYS. IT IS YOUR RESPONSIBILITY TO MAKE AN APPOINTMENT FOR FOLOW-UP CARE. IF YOU HAVE A PRIMARY DOCTOR --you should call your primary doctor and schedule and appointment IF YOU DO NOT HAVE A PRIMARY DOCTOR YOU CAN CALL OUR PHYSICIAN REFERRAL HOTLINE AT . IF YOU CAN NOT AFFORD TO SEE A PHYSICIAN YOU CAN CHOSE FROM THE FOLLOWING [facility]: [facility] [address] [place] [address] [facility] [address] [place] [address] [facility] [address] [place] [address] [facility] URGENT CARE/SPECIALTIES Additional Instructions: FOLLOW UP WITH OTPHALMOLOGIST WITHIN 24 HOURS. TAKE YOUR CONTACTS OFF WHEN YOU GO TO SLEEP every night. Return to this facility if you are not improving as expected - fever, nausea, vomiting, vision loss, headache. AMIE POSEY PA-C Mar 13, 2017 20:15
[2017-04-11] MEDS ORDERED: NAPR-688 PO (11:49)
[2017-04-11] MEDS ORDERED: MED4DP PO (11:49)
== END 2017-03-13 19:25 | disposition home or self-care (01) ==
LOC: FTE 16:29
DX: H18.821 Corneal disorder due to contact lens, right eye (principal); Z79.82 Long term (current) use of aspirin
CPT/HCPCS: 99283; Z7610

== ENCOUNTER 2017-04-11 10:52 | Emergency (ER) | END 2017-04-11 12:15 | disposition home or self-care (01) | DX: M54.5 Low back pain (principal); E66.9 Obesity, unspecified; Z68.43 Body mass index [BMI] 50.0-59.9, adult; Z79.82 Long term (current) use of aspirin | CPT/HCPCS: 96372; 99284; J1885; Z7610 ==

== ENCOUNTER 2017-04-15 11:09 | Emergency (ER) | payer BC ==
[~2017-04-15] VITALS: Ht 162.6 cm; Wt 118.2 kg
[~2017-04-15 11:09] MED LIST changes: +BENA40TA41; +BENEZEPRIL; +CYCL-117; +LOVA20TA69; +METO-103; +METO-53 PO; +NAPR-688 PO; +NO NEW MEDS; +VIGA BOTH EYES; +[UNRECOGNIZED DRUG - OTHER]; +asa
[2017-04-15 11:10] VITALS: Ht 162.6 cm; Wt 118.2 kg
[2017-04-15] MEDS ORDERED: KETOROLAC 30 MG INJ IM STA (11:47)
--- NOTE | 2017-04-15 11:56 | ERD ---
ER Documentation Chief Complaint Date/Time DATE: 04/15/17 TIME: 11:53 Chief Complaint BACK PAIN WITH HX OF SCIATICA HPI 46-year-old female, history of obesity, sciatica, with right meniscal tear presents with exacerbation of her low back pain on the left side over the last 3 days, also presents with left knee pain. Patient's primary care doctor, Dr. Salguero has had an x-ray and she has been told that she has degenerative disc problems, as well as sciatica. She normally gets a prescription for Robaxin for her primary care doctor but she states that it was not working, came in here now has been taking the Medrol Dosepak as well as naproxen. She states that her pain radiates on her left leg across the buttock down to her foot she has tingling to her left foot as well. She complains of left anterior knee pain , this was from a fall 4 days ago when she was walking and due to her meniscus injury on the right knee she states that her knee gave out and she fell onto her left knee. She denies fevers or chills. She denies loss of bowel bladder function or saddle anesthesia. No chest pain, shortness of breath. ROS All systems reviewed and are negative except as per history of present illness. Medications Home Meds Active Scripts Hydrocodone/Acetaminophen ([place] 5-325 Tablet) 1 Each Tablet, 1 TAB PO Q6H Y for PAIN, #7 TAB Prov:MOE NAVA PA-C 04/15/17 Methylprednisolone* (Medrol* DOSE PACK) 4 Mg/Dose-Pack Tab.ds.pk, 4 MG PO . DIRECTED, #1 PACKET Prov:DION SILVER PA-C 04/11/17 Naproxen* (Naproxen*) 500 Mg Tablet, 500 MG PO BID, #30 TAB Prov:DION SILVER PA-C 04/11/17 Moxifloxacin Hcl* (Vigamox*) 0.5% - 3 Ml Opht, 2 DROP BOTH EYES TID for 7 Days, EA Instill 1-2 drops every 2 hours while awake for 2 days, then every 4-8 hours for 5 days. Prov:AMIE POSEY PA-C 03/13/17 Diazepam* (Diazepam*) 10 Mg Tablet, 10 MG PO TID, #14 TAB Prov:TEEHEE,MICHAEL N. MD 11/26/16 Tramadol HCl (Tramadol HCl) 50 Mg Tablet, 50 MG PO Q4 Y for PAIN, #20 TAB Prov:MICHAEL THORNE MD 11/26/16 Ibuprofen* (Motrin*) 800 Mg Tab, 800 MG PO Q6, #30 TAB Prov:MICHAEL THORNE MD 11/26/16 Ibuprofen* (Ibuprofen*) 600 Mg Tablet, 600 MG PO Q6 for 3 Days, TAB Prov:JAVIER REYNA 11/21/16 Hydrocodone/Acetaminophen ([place] 5-325 Tablet) 1 Each Tablet, 1 TAB PO Q6H Y for PAIN, #10 TAB Prov:JAVIER REYNA 11/21/16 Methylprednisolone* (Medrol* DOSE PACK) 4 Mg/Dose-Pack Tab.ds.pk, 4 MG PO . DIRECTED for 6 Days, PACKET Prov:JAVIER REYNA 11/21/16 Orphenadrine Citrate (Norflex) 100 Mg Tablet.sa, 100 MG PO BID for 5 Days, TAB.SA Prov:JAVIER REYNA 11/21/16 Naproxen* (Naprosyn*) 500 Mg Tablet, 500 MG PO BID Y for PAIN AND/OR INFLAMMATION, #30 TAB Prov:AMIE POSEY PA-C 11/15/16 Ibuprofen* (Ibuprofen*) 600 Mg Tablet, 600 MG PO Q8 for PAIN AND/OR INFLAMMATION , #30 TAB Prov:HARRIET IZAGUIRRE MD 07/24/16 Paroxetine Hcl* (Paxil*) 40 Mg Tablet, 40 MG PO QAM, #30 TAB Prov:HARRIET IZAGUIRRE MD 07/24/16 Famotidine* (Pepcid*) 20 Mg Tablet, 20 MG PO BID for 4 Days, TAB Prov:NICOLE STARK PA-C 07/20/16 Naproxen* (Naprosyn*) 500 Mg Tablet, 500 MG PO BID Y for PAIN AND/OR INFLAMMATION, #30 TAB Prov:NICOLE STARK PA-C 07/20/16 Ibuprofen* (Motrin*) 600 Mg Tab, 600 MG PO Q6, #30 TAB Prov:LEIDA LANDERS PA-C 06/03/16 Ciprofloxacin Opht* (Ciloxan*) 0.3%-3.5 Opht Oint, 2 DROP RIGHT EYE TID for 5 Days, EA Prov:LEIDA LANDERS PA-C 06/03/16 Ibuprofen* (Motrin*) 600 Mg Tab, 600 MG PO Q6, #30 TAB Prov:AXELCANELOJAVIER C 01/31/16 Tramadol HCl (Tramadol HCl) 50 Mg Tablet, 50 MG PO Q4 Y for PAIN, #20 TAB Prov:JAVIER REYNA 01/31/16 Cyclobenzaprine Hcl* (Cyclobenzaprine Hcl*) 10 Mg Tablet, 10 MG PO TID, #15 TAB Prov:SUMAN VASQUEZ SEAFOOD PREPARER 07/26/15 Sodium Chloride (Saline Nasal [place]) 45 Ml [place], 1 SPRAY NS q1 Y for congestion , #1 BOTTLE Prov:SUMAN VASQUEZ SEAFOOD PREPARER 01/24/15 Fluticasone Propionate* (Flonase* Nasal) 50 Mcg/[place] - 16 Gm [place].susp, 1 SPRAY NASAL DAILY, #1 BOTTLE TO EACH NOSTRIL Prov:SUMAN VASQUEZ SEAFOOD PREPARER 01/24/15 Loratadine* (Claritin*) 10 Mg Tablet, 10 MG PO DAILY, #30 TAB Prov:SUMAN VASQUEZ SEAFOOD PREPARER 01/24/15 Reported Medications Acetaminophen-Codeine (Tylenol With Codeine #3 Tablet) 1 Tab Tablet, 300 MG PO PRN 05/01/13 Loratadine (Claritin) 10 Mg Tablet, DAILY 09/25/12 Carvedilol* (Carvedilol*) 25 Mg Tablet, 25 MG PO DAILY, 0 Refills 11/20/11 Aspirin (Aspirin) 81 Mg Tablet, 81 MG PO DAILY 11/20/11 Lovastatin* (Lovastatin*) 20 Mg Tablet, 20 MG PO DAILY 08/04/11 Benazepril Hcl* (Benazepril Hcl*) 40 Mg Tablet, 40 MG PO DAILY 08/04/11 Allergies Allergies: Coded Allergies: No Known Allergy (Verified , 07/24/16) PMhx/Soc History of Surgery: Yes (, L. Ankle) Anesthesia Reaction: No Hx Neurological Disorder: No Hx Respiratory Disorders: No Hx Cardiac Disorders: No Hx Psychiatric Problems: No Hx Miscellaneous Medical Probl: Yes (OBESITY) Hx Alcohol Use: Yes (socially) Hx Substance Use: No Hx Tobacco Use: No Physical Exam Vitals Vital Signs Date Time Temp Pulse Resp B/P Pulse Ox O2 Delivery O2 Flow Rate FiO2 04/15/17 11:10 98.5 92 18 148/60 98 Physical Exam General: Obese female, mild distress due to pain HEENT: Head is normocephalic, atraumatic. No scleral icterus. Neck: Supple. Nontender. Lungs: Clear to auscultation. Normal air movement. Heart: Regular rate and rhythm. S1 and S2 are normal. No murmurs, gallops, or rubs. Abdomen: Soft, nontender, nondistended. Bowel sounds are normoactive. Back: No midline tenderness, no rashes, patient's strength lower extremities 5 out of 5 bilaterally Extremities: Left anterior medial knee pain upon palpation, she is able to flex and extend the knee. Negative Homans sign Neurologic: Alert and oriented 3. No focal deficits. Skin: Normal turgor. No rash or lesions. Results 24 hrs Current Medications Medications (Trade) Dose Ordered Sig/Rodney Route PRN Reason Start Time Stop Time Status Last Admin Dose Admin Ketorolac Tromethamine (Toradol) 30 mg ONCE STAT IM 04/15/17 11:47 04/15/17 11:50 DC 04/15/17 12:01 Acetaminophen/ Hydrocodone Bitart ([place] (5/325)) 1 tab ONCE ONCE PO 04/15/17 12:00 04/15/17 12:01 DC 04/15/17 12:01 Procedures/MDM ED course: She was given Toradol 30 mg IM, as well as [place] for pain. Medical decision makin-year-old female presents with low back pain, patient reports a history of sciatica presents with exacerbation of chronic back pain. She states that she has had this back pain since October of this year when she tore her meniscus. Does not present any signs or symptoms of cauda equina, epidural abscess, epidural hematoma, dissection acute coronary syndrome. She says she has an appointment 3 days from now, she is to follow-up with her primary care doctor to see a back specialist. She will be given a short course of [place], she was advised that further refills need to be given by her primary care doctor or a pain specialist. She is currently taking naproxen as well as a Medrol Dosepak which she may continue. She also presents with left knee pain from a fall, her knee x-rays are unremarkable. This is likely contusion. Departure Diagnosis: Primary Impression: Back pain Additional Impression: Knee pain Condition: Good MOE NAVA PA-C Apr 15, 2017 11:56
[2017-04-15] MEDS ORDERED: HYDROCODONE/APAP (5/325) TAB PO ONE (12:00)
--- NOTE | 2017-04-15 13:14 | RADRPT ---
PROCEDURE: Left knee series. CLINICAL INDICATION: Left knee pain TECHNIQUE: Three views of the left knee. COMPARISON: None available FINDINGS: There is normal mineralization and alignment of the left knee. No acute fracture or dislocation is seen. There is moderate tricompartmental joint space narrowing and abundant osteophyte formation. No definite joint effusion is seen. The soft tissues are within normal limits. IMPRESSION: 1. No evidence of acute fracture or dislocation. 2. Degenerative changes of the left knee. RPTAT: KK .Tonio Gibson MD, MD Date Time Electronically viewed and signed by .Tonio Gibson MD, on 04/15/2017 13:13 .B/
[2017-04-15] MEDS ORDERED: HYDR-906 PO (13:23)
[2017-04-15 13:59] VITALS: BP 138/60; PULSE 75; RESP 18; TEMP 98.5
== END 2017-04-15 14:00 | disposition home or self-care (01) ==
LOC: FTE 11:09
DX: M54.5 Low back pain (principal); M25.562 Pain in left knee; E66.9 Obesity, unspecified; Z68.41 Body mass index [BMI] 40.0-44.9, adult; Z79.82 Long term (current) use of aspirin
CPT/HCPCS: 73562; 96372; 99284; J1885; Z7610

== ENCOUNTER 2017-08-14 09:13 | Emergency (ER) | payer BC ==
[~2017-08-14] VITALS: Ht 162.6 cm; Wt 89.0 kg
[~2017-08-14 09:13] MED LIST changes: -BENA40TA41; -BENEZEPRIL; -CYCL-117; -LOVA20TA69; -METO-103; -METO-53 PO; -NO NEW MEDS; -[UNRECOGNIZED DRUG - OTHER]; -asa
[2017-08-14 09:16] VITALS: Ht 162.6 cm; Wt 89.0 kg
[2017-08-14] MEDS ORDERED: ONDA4TAB14 PO (09:51)
--- NOTE | 2017-08-14 10:55 | ERD ---
ER Documentation Chief Complaint Chief Complaint cough x 3 days HPI Patient is a 47-year-old female presents to the ED for concerns of chest wall pain. Patient states 3 days ago she recently started taking Percocet for her chronic back pain and knee pain. Patient states that she took this medication and immediately had 3-4 episodes of nonbloody, nonbilious vomiting. Patient reports taking this medication on empty stomach sick. Patient states she additionally try to take her Percocet with food however she again vomited. Since 3 days ago patient has not taken additional doses of Percocet and has not had any additional episodes of nausea or vomiting.. Patient states she has had pain to her bilateral rib cage since vomiting. Patient states that the pain is worse when coughing, sneezing or laughing. Patient does not have a cough despite the triage note states. Patient only states that her symptoms are worse when she is coughing. Patient denies any headache, blurry vision, chest pain, shortness of breath, LOC. She denies any fevers or chills. She denies any abdominal pain. Patient denies any unilateral leg swelling, history of DVT/ PE, history of recent surgery, history of recent prolonged travel. ROS All systems reviewed and are negative except as per history of present illness. Medications Home Meds Active Scripts Ondansetron (Ondansetron Odt) 4 Mg Tab.rapdis, 4 MG PO Q6H Y for NAUSEA AND/OR VOMITING, #10 TAB Prov:LEIDA LANDERS PA-C 08/14/17 Hydrocodone/Acetaminophen ([place] 5-325 Tablet) 1 Each Tablet, 1 TAB PO Q6H Y for PAIN, #7 TAB Prov:MOE NAVA PA-C 04/15/17 Methylprednisolone* (Medrol* DOSE PACK) 4 Mg/Dose-Pack Tab.ds.pk, 4 MG PO . DIRECTED, #1 PACKET Prov:DION SILVER PA-C 04/11/17 Naproxen* (Naproxen*) 500 Mg Tablet, 500 MG PO BID, #30 TAB Prov:DION SILVER PA-C 04/11/17 Moxifloxacin Hcl* (Vigamox*) 0.5% - 3 Ml Opht, 2 DROP BOTH EYES TID for 7 Days, EA Instill 1-2 drops every 2 hours while awake for 2 days, then every 4-8 hours for 5 days. Prov:AMIE POSEY PA-C 03/13/17 Diazepam* (Diazepam*) 10 Mg Tablet, 10 MG PO TID, #14 TAB Prov:MICHAEL THORNE MD 11/26/16 Tramadol HCl (Tramadol HCl) 50 Mg Tablet, 50 MG PO Q4 Y for PAIN, #20 TAB Prov:MICHAEL THORNE MD 11/26/16 Ibuprofen* (Motrin*) 800 Mg Tab, 800 MG PO Q6, #30 TAB Prov:MICHAEL THORNE MD 11/26/16 Ibuprofen* (Ibuprofen*) 600 Mg Tablet, 600 MG PO Q6 for 3 Days, TAB Prov:JAVIER REYNA 11/21/16 Hydrocodone/Acetaminophen ([place] 5-325 Tablet) 1 Each Tablet, 1 TAB PO Q6H Y for PAIN, #10 TAB Prov:JAVIER REYNA 11/21/16 Methylprednisolone* (Medrol* DOSE PACK) 4 Mg/Dose-Pack Tab.ds.pk, 4 MG PO . DIRECTED for 6 Days, PACKET Prov:JAVIER REYNA 11/21/16 Orphenadrine Citrate (Norflex) 100 Mg Tablet.sa, 100 MG PO BID for 5 Days, TAB.SA Prov:JAVIER REYNA 11/21/16 Naproxen* (Naprosyn*) 500 Mg Tablet, 500 MG PO BID Y for PAIN AND/OR INFLAMMATION, #30 TAB Prov:AMIE POSEY PA-C 11/15/16 Ibuprofen* (Ibuprofen*) 600 Mg Tablet, 600 MG PO Q8 for PAIN AND/OR INFLAMMATION , #30 TAB Prov:HARRIET IZAGUIRRE MD 07/24/16 Paroxetine Hcl* (Paxil*) 40 Mg Tablet, 40 MG PO QAM, #30 TAB Prov:HARRIET IZAGUIRRE MD 07/24/16 Famotidine* (Pepcid*) 20 Mg Tablet, 20 MG PO BID for 4 Days, TAB Prov:NICOLE STARK PA-C 07/20/16 Naproxen* (Naprosyn*) 500 Mg Tablet, 500 MG PO BID Y for PAIN AND/OR INFLAMMATION, #30 TAB Prov:NICOLE STARKC 07/20/16 Ibuprofen* (Motrin*) 600 Mg Tab, 600 MG PO Q6, #30 TAB Prov:LEESALEIDA PA-C 06/03/16 Ciprofloxacin Opht* (Ciloxan*) 0.3%-3.5 Opht Oint, 2 DROP RIGHT EYE TID for 5 Days, EA Prov:LEESALEIDA PA-C 06/03/16 Ibuprofen* (Motrin*) 600 Mg Tab, 600 MG PO Q6, #30 TAB Prov:JAVIER REYNA 01/31/16 Tramadol HCl (Tramadol HCl) 50 Mg Tablet, 50 MG PO Q4 Y for PAIN, #20 TAB Prov:JAVIER REYNA 01/31/16 Cyclobenzaprine Hcl* (Cyclobenzaprine Hcl*) 10 Mg Tablet, 10 MG PO TID, #15 TAB Prov:SUMAN VASQUEZ BILINGUAL RECEPTIONIST 07/26/15 Sodium Chloride (Saline Nasal [place]) 45 Ml [place], 1 SPRAY NS q1 Y for congestion , #1 BOTTLE Prov:SUMAN VASQUEZ BILINGUAL RECEPTIONIST 01/24/15 Fluticasone Propionate* (Flonase* Nasal) 50 Mcg/[place] - 16 Gm [place].susp, 1 SPRAY NASAL DAILY, #1 BOTTLE TO EACH NOSTRIL Prov:SUMAN VASQUEZ. BILINGUAL RECEPTIONIST 01/24/15 Loratadine* (Claritin*) 10 Mg Tablet, 10 MG PO DAILY, #30 TAB Prov:SUMAN VASQUEZ. BILINGUAL RECEPTIONIST 01/24/15 Reported Medications Acetaminophen-Codeine (Tylenol With Codeine #3 Tablet) 1 Tab Tablet, 300 MG PO PRN 05/01/13 Loratadine (Claritin) 10 Mg Tablet, DAILY 09/25/12 Carvedilol* (Carvedilol*) 25 Mg Tablet, 25 MG PO DAILY, 0 Refills 11/20/11 Aspirin (Aspirin) 81 Mg Tablet, 81 MG PO DAILY 11/20/11 Lovastatin* (Lovastatin*) 20 Mg Tablet, 20 MG PO DAILY 08/04/11 Benazepril Hcl* (Benazepril Hcl*) 40 Mg Tablet, 40 MG PO DAILY 08/04/11 Allergies Allergies: Coded Allergies: No Known Allergy (Verified , 08/14/17) PMhx/Soc History of Surgery: Yes (, L. Ankle) Anesthesia Reaction: No Hx Neurological Disorder: No Hx Respiratory Disorders: No Hx Cardiac Disorders: Yes (HTN , HIGH CHOLESTEROL ) Hx Psychiatric Problems: No Hx Miscellaneous Medical Probl: Yes (OBESITY) Hx Alcohol Use: Yes (socially) Hx Substance Use: No Hx Tobacco Use: No Smoking Status: Never smoker Physical Exam Vitals Vital Signs Date Time Temp Pulse Resp B/P Pulse Ox O2 Delivery O2 Flow Rate FiO2 08/14/17 09:16 98.3 99 18 134/74 99 Physical Exam GENERAL: Well-developed, well-nourished female. Appears in no acute distress. HEAD: Normocephalic, atraumatic. EYES: Pupils are equally reactive bilaterally. EOMs grossly intact. No conjunctival erythema. ENT: Moist mucous membranes. No uvula deviation. No kissing tonsils. NECK: Supple. No meningismus. Normal range of motion of the neck. LUNG: Clear to auscultation bilaterally. No rhonchi, wheezing, rales or coarse breath sounds. HEART: Regular rate and rhythm. No murmurs, rubs or gallops. CHEST WALL: Tender to palpation of bilateral lateral rib cages. Pain is reproducible. No anterior chest wall pain. ABDOMEN: No scars, ecchymosis or rashes noted. Soft, nontender, and nondistended. Positive bowel sounds in all four quadrants. No rebound tenderness , no guarding. EXTREMITIES: Equal pulses bilaterally. No peripheral clubbing, cyanosis or edema. No unilateral leg swelling. NEUROLOGIC: Alert and oriented. Moving all four extremities without any difficulty. Normal speech. Steady gait. SKIN: Normal color. Warm and dry. No rashes or lesions. Procedures/MDM MEDICAL DECISION MAKING: This is a 47-year-old female who presents to the ED for concerns of bilateral rib cage pain after numerous episodes of vomiting 3 days ago. Patient states 3 days ago she started taking Percocet. She vomited after taking this medication. After discontinuing Percocet, she no longer had any episodes of vomiting. Patient denies any nausea, abdominal pain, chest pain or shortness of breath at this time. Patient states she only has pain when she is coughing, sneezing or laughing. Patient denies any pain at rest. Patient denied any leg swelling, recent surgeries, travel, exogenous estrogen use. Vital signs were reviewed. Patient was afebrile. Patient was not hypoxic. Cardiac exam was normal. Lung exam was normal. Lateral aspects of bilateral rib cages were tender to palpation. I did offer the patient a chest x-ray however she declined. Patient was advised that she may return at anytime for chest x-ray if desired. Patient's PERC score was calculated to be 0. At this time, the patient's presentation is most consistent with chest wall pain. Low suspicion for ACS, pericarditis, arrhythmia, PE, aortic dissection, rib fracture, rib contusion, pneumothorax or pneumonia. PRESCRIPTIONS: Zofran. Patient was advised to take ibuprofen which she stated that she had at home. DISCHARGE: At this time, patient is stable for discharge and outpatient management. I have instructed the patient to follow-up with his/her primary care physician in 1-2 days. If symptoms persist, patient may need to see a specialist for further examinations and testing. I have instructed the patient to promptly return to the ER at any time for any new or worsening symptoms including increased increased pain, fever, nausea, vomiting, numbness, weakness, diaphoresis or LOC. The patient and/or family expressed understanding of and agreement with this plan. All questions were answered. Home care instructions were provided. Disclaimer: Inadvertent spelling and grammatical errors are likely due to EHR/ dictation software use and do not reflect on the overall quality of patient care. Also, please note that the electronic time recorded on this note does not necessarily reflect the actual time of the patient encounter. Departure Diagnosis: Primary Impression: Chest wall pain Condition: Stable Patient Instructions: Chest Wall Pain, Costochondritis Additional Instructions: Call your primary care doctor TOMORROW for an appointment during the next 1-2 days.See the doctor sooner or return here if your condition worsens before your appointment time. LEIDA LANDERS PA-C Aug 14, 2017 10:55
== END 2017-08-14 10:08 | disposition home or self-care (01) ==
LOC: FTE 09:13
DX: R07.89 Other chest pain (principal); I10 Essential (primary) hypertension; E66.9 Obesity, unspecified; Z79.82 Long term (current) use of aspirin; Z68.33 Body mass index [BMI] 33.0-33.9, adult
CPT/HCPCS: 99283

== ENCOUNTER 2017-08-17 10:32 | Emergency (ER) | END 2017-08-17 13:48 | disposition home or self-care (01) ==

== ENCOUNTER 2017-08-29 10:26 | Emergency (ER) | END 2017-08-29 12:49 | disposition home or self-care (01) ==

== ENCOUNTER 2017-10-08 21:24 | Emergency (ER) | END 2017-10-09 02:12 | disposition home or self-care (01) ==

== ENCOUNTER 2018-02-03 07:34 | Emergency (ER) | END 2018-02-03 09:12 | disposition home or self-care (01) ==

== ENCOUNTER 2018-07-09 10:36 | Emergency (ER) | END 2018-07-09 11:42 | disposition home or self-care (01) ==

== ENCOUNTER 2018-07-28 07:23 | Emergency (ER) | END 2018-07-28 09:30 | disposition home or self-care (01) ==

== ENCOUNTER 2018-08-02 17:52 | Emergency (ER) | END 2018-08-02 19:05 | disposition home or self-care (01) ==

== ENCOUNTER 2018-09-05 17:00 | Emergency (ER) | payer BC ==
[~2018-09-05] VITALS: Ht 157.5 cm; Wt 113.9 kg
[~2018-09-05 17:00] MED LIST changes: -ACET-1145 PO; +ACET325T33 PO; +ALBU8.5H8 INH; -BENA40TA41 PO; +BENA40TA56 PO; +BENZ-6 PO; -CPR3OO3.5 RIGHT EYE; -CYCL-319 PO; +CYCL10TA7 PO; +D-ME473S2 PO; -DIAZ10TA4 PO; +DIAZ5TAB PO; -FLUT16SP24 NASAL; -HYDR-906 PO; -IBUP-1542 PO; -IBUP800T25 PO; +IBUP800T48 PO; -LORA-407; -LOVA20TA PO; -NAPR-260 PO; -NAPR-688 PO; +NAPR-985 PO; +OMEG-135 PO; -ORPH100T PO; -PARO40TA48 PO; -SODI44SP11 NS
[2018-09-05 17:03] VITALS: Ht 157.5 cm; Wt 113.9 kg
--- NOTE | 2018-09-05 18:14 | ERD ---
ER Documentation Chief Complaint Chief Complaint INTERMITTENT LT SIDED CHEST WALL PAIN X2WKS NON-PROVOKED HPI Extremely pleasant 48-year-old female who presents to the emergency room complaining of at least 3 weeks of left-sided intermittent chest pain. She describes it as point tender, reproducible and worse when stretching her chest. She denies any migratory pain, no exertional symptoms. She states that it waxes and wanes and comes and goes even when at rest. She denies any pleuritic pain or shortness of breath, no recent travel, immobilization, calf swelling, family history of DVT or pulmonary embolism. Patient had a clean angiogram in 2010. No other stress testing at this time. ROS All systems reviewed and are negative except as per history of present illness. Medications Home Meds Active Scripts Famotidine* (Pepcid*) 20 Mg Tablet, 20 MG PO BID for 14 Days, TAB Prov:SOPHIA ALEMAN MD 09/05/18 Reported Medications Atorvastatin Calcium* (Atorvastatin Calcium*) 20 Mg Tablet, 20 MG PO QHS, #30 TAB 09/05/18 Gabapentin* (Gabapentin*) 300 Mg Capsule, 300 MG PO TID, #90 CAP 09/05/18 Hydrochlorothiazide* (Hydrochlorothiazide*) 25 Mg Tab, 25 MG PO DAILY, #30 TAB 09/05/18 Cyclobenzaprine Hcl* (Cyclobenzaprine Hcl*) 10 Mg Tablet, 10 MG PO DAILY, #60 TAB 09/05/18 Zolpidem Tartrate* (Zolpidem Tartrate*) 5 Mg Tablet, 5 MG PO QHS PRN for INSOMNIA, #30 TAB 09/05/18 Metoprolol Succinate* (Toprol XL*) 100 Mg Tab.sr.24h, 100 MG PO BID, #30 TAB 09/05/18 Hydrocodone/Acetaminophen ([place] 10-325 Tablet) 1 Each Tablet, 1 EACH PO TID, TAB 09/05/18 Aspirin* (Aspirin* EC) 81 Mg Tablet.dr, 81 MG PO DAILY, TAB 09/05/18 Benazepril Hcl* (Benazepril Hcl*) 40 Mg Tablet, 40 MG PO DAILY, #30 TAB 09/05/18 Meloxicam* (Mobic*) 15 Mg Tablet, 15 MG PO DAILY, #30 TAB 09/05/18 Discontinued Reported Medications [place]-3 Fatty Acids/Fish Oil (Fish Oil 1,000 mg Capsule) 1 Each Capsule, 1 EACH PO, CAP 10/09/17 Carvedilol* (Carvedilol*) 25 Mg Tablet, 25 MG PO DAILY, 0 Refills 11/20/11 Aspirin (Aspirin) 81 Mg Tablet, 81 MG PO DAILY 11/20/11 Benazepril Hcl* (Benazepril Hcl*) 40 Mg Tablet, 40 MG PO DAILY 08/04/11 Discontinued Scripts Acetaminophen* (Tylenol*) 325 Mg Tablet, 2 TAB PO Q6 PRN for PAIN AND OR ELEVATED TEMP, #30 TAB Prov:DION SILVER PA-C 07/28/18 Cyclobenzaprine Hcl* (Cyclobenzaprine Hcl*) 10 Mg Tablet, 10 MG PO TID, #30 TAB Prov:DION SILVER PA-C 07/28/18 Albuterol Sulfate* (Proair HFA*) 8.5 Gm Hfa.aer.ad, 2 PUFF INH Q4, #1 INHALER Prov:JUICE ORTEGA PA-C 07/09/18 Methylprednisolone* (Medrol* DOSE PACK) 4 Mg/Dose-Pack Tab.ds.pk, 4 MG PO . DIRECTED for 5 Days, PACKET Prov:JUICE ORTEGA PA-C 07/09/18 Dextromethorphan Hb-Promethazine Hcl* (Promethazine DM* Syrup) 473 Ml Syrup, 5 ML PO Q6 PRN for COUGH for 7 Days, ML Prov:JUICE ORTEGA PA-C 07/09/18 Benzonatate* (Tessalon Perle*) 100 Mg Capsule, 100 MG PO Q8H PRN for COUGH, #30 CAP Prov:NICOLE STARK PA-C 02/03/18 Dextromethorphan Hb-Promethazine Hcl* (Promethazine DM* Syrup) 473 Ml Syrup, 5 ML PO Q6 PRN for COUGH, #100 ML Prov:NICOLE STARK PA-C 02/03/18 Diazepam* (Valium*) 5 Mg Tablet, 5 MG PO Q8, #10 TAB Prov:GEENA MEHTA 10/09/17 Moxifloxacin Hcl* (Vigamox*) 0.5% - 3 Ml Opht, 2 DROP BOTH EYES TID for 7 Days, EA Instill 1-2 drops every 2 hours while awake for 2 days, then every 4-8 hours for 5 days. Prov:AMIE POSEY PA-C 03/13/17 Ibuprofen* (Motrin*) 800 Mg Tab, 800 MG PO Q6, #30 TAB Prov:MICHAEL THORNE MD 11/26/16 Famotidine* (Pepcid*) 20 Mg Tablet, 20 MG PO BID for 4 Days, TAB Prov:NICOLE STARK PA-C 07/20/16 Naproxen* (Naprosyn*) 500 Mg Tablet, 500 MG PO BID PRN for PAIN AND/OR INFLAMMATION, #30 TAB Prov:NICOLE STARK PA-C 07/20/16 Tramadol HCl (Tramadol HCl) 50 Mg Tablet, 50 MG PO Q4 PRN for PAIN, #20 TAB Prov:JAVIER REYNA 01/31/16 Cyclobenzaprine Hcl* (Cyclobenzaprine Hcl*) 10 Mg Tablet, 10 MG PO TID, #15 TAB Prov:SUMAN VASQUEZ NP 07/26/15 Loratadine* (Claritin*) 10 Mg Tablet, 10 MG PO DAILY, #30 TAB Prov:SUMAN VASQUEZ CATTLE DIPPER 01/24/15 Allergies Allergies: Coded Allergies: No Known Allergy (Verified , 09/05/18) PMhx/Soc History of Surgery: Yes (C SECTION 1998,LEFT ANKLE 1993) Anesthesia Reaction: No Hx Neurological Disorder: No Hx Respiratory Disorders: No Hx Cardiac Disorders: Yes (HTN,HYPERLIPIDEMIA) Hx Psychiatric Problems: No Hx Miscellaneous Medical Probl: Yes (CHRONIC PAIN) Hx Alcohol Use: Yes (OCCASSIONAL) Hx Substance Use: Yes (marijuana) Hx Tobacco Use: Yes FmHx Family History: No diabetes, No coronary disease Physical Exam Vitals Vital Signs Date Temp Pulse Resp B/P (MAP) Pulse Ox O2 O2 Flow FiO2 Time Delivery Rate 09/05/18 79 21 96/72 (80) 100 Room Air 18:54 09/05/18 98.6 87 20 110/65 100 17:03 (80) Physical Exam General: Well developed, well nourished, no acute distress Head: Normocephalic, atraumatic. Eyes: Pupils equally reactive, EOM intact ENT: Moist mucous membranes Neck: Supple, no lymphadenopathy Respiratory: Lungs clear bilaterally, no distress Cardiovascular: RRR, no murmurs, rubs, or gallops Abdominal: Soft, non-tender, non-distended, no peritoneal signs : Deferred MSK: No edema, no unilateral swelling, 5/5 strength Neurologic: Alert and oriented, moving all extremities, normal speech, no focal weakness, no cerebellar signs Skin: No rash Psych: Normal mood Result Diagram: 09/05/18182709/05/181827 Results 24 hrs Laboratory Tests Test 09/05/18 18:28 White Blood Count 8.6 10^3/ul Red Blood Count 4.01 10^6/ul Hemoglobin 11.6 g/dl Hematocrit 37.0 % Mean Corpuscular Volume 92.3 fl Mean Corpuscular Hemoglobin 28.9 pg Mean Corpuscular Hemoglobin Concent 31.4 g/dl Red Cell Distribution Width 13.1 % Platelet Count 354 10^3/UL Mean Platelet Volume 9.4 fl Immature Granulocytes % 0.500 % Neutrophils % 52.7 % Lymphocytes % 35.4 % Monocytes % 7.2 % Eosinophils % 3.6 % Basophils % 0.6 % Nucleated Red Blood Cells % 0.0 /100WBC Immature Granulocytes # 0.040 10^3/ul Neutrophils # 4.6 10^3/ul Lymphocytes # 3.1 10^3/ul Monocytes # 0.6 10^3/ul Eosinophils # 0.3 10^3/ul Basophils # 0.1 10^3/ul Nucleated Red Blood Cells # 0.0 10^3/ul Sodium Level 140 mmol/L Potassium Level 4.5 mmol/L Chloride Level 103 mmol/L Carbon Dioxide Level 26 mmol/L Anion Gap 11 Blood Urea Nitrogen 23 mg/dl Creatinine 0.90 mg/dl Est Glomerular Filtrat Rate mL/min > 60 mL/min Glucose Level 95 mg/dl Calcium Level 9.7 mg/dl Troponin I < 0.012 ng/ml Current Medications Medications Dose Sig/Rodney Start Time Status Last (Trade) Ordered Route PRN Stop Time Admin Dose Reason Admin Famotidine 20 mg ONCE STAT 09/05/18 DC (Pepcid Iv) IV 19:39 09/05/18 19:40 40 ml ONCE STAT 09/05/18 DC Miscellaneous PO 19:39 Medication 09/05/18 19:40 (Gi Cocktail (2)) Procedures/MDM EKG, MONITORS, & DIAGNOSTIC IMAGING: EKG: I reviewed and interpreted a 12-lead EKG. Rhythm: Normal sinus rhythm ST Changes: No contiguous ST segment elevations T waves: No contiguous T wave inversions Impression: [No evidence of acute cardiac ischemia] Repeat EKG: EKG: I reviewed and interpreted a 12-lead EKG. Rhythm: Normal sinus rhythm ST Changes: No contiguous ST segment elevations T waves: No contiguous T wave inversions Impression: [No evidence of acute cardiac ischemia] Chest x-ray: I reviewed and interpreted a 1 view of the chest Mediastinum: No enlargement Cardiac silhouette: No cardiomegaly Airspace: Clear lung garcia bilaterally without evidence of pneumothorax Bones: No evidence of fracture PROCEDURES: [None] LAB INTERPRETATION: * Negative troponin MEDICAL DECISION MAKING: The patient's history, physical exam and clinical presentation not consistent with acute coronary syndrome. The patient has reproducible symptoms, subacute symptoms that are nonexertional over a 3-week timeframe. This is most likely muscular skeletal in etiology. The patient is additionally a smoker, consider pleurisy. No signs or symptoms concerning for pulmonary embolism or dissection. While I cannot technically apply the PERC rule out criteria because the pat ient's age is 48 she exhibits no signs or symptoms concerning for pulmonary embolism. The risk of false positive testing outweighs the benefits. No indication for d-dimer. Based on the patient's clinical exam and history and risk factors, I have a much lower clinical concern for pulmonary embolism, acute aortic dissection, pneumothorax, pneumonia, cardiac tamponade HEART Score: 3 MACE Rate: Less than 1.7% Shared Decision Making: We had a conversation regarding risk stratification, MACE rate, and the risks, benefits, alternatives of disposition planning options. Disposition planning: Outpatient follow-up. We did discuss serial exams here in the emergency room. But the patient has excellent follow-up. ER COURSE: * The patient with negative troponin. Negative workup. * Patient was offered serial enzymes but refused. Informed consent provided * The patient does describe some burning and belching which could represent GI process. GI cocktail provided. * At this point the patient can be safely discharged with close primary care follow-up and strict return precautions. * Blood pressure was noted to be in the 80s and 90s. She states that this is normal when she takes her blood pressure medication which she took today. She has no symptoms. CONSULTATION: [None] DISPOSITION PLAN: The patient does not have an identifiable emergent medical condition that warrants inpatient hospitalization at this time. The patient is deemed safe for discharge with outpatient follow-up. We discussed follow up with the patient's primary care doctor within 24 to 48 hours as needed. We also discussed return to the emergency room for worsening symptoms or worsening condition. Outpatient referral: [None required] Discharge Medications: Pepcid Departure Diagnosis: Primary Impression: Chest pain Chest pain type: unspecified Qualified Codes: R07.9 - Chest pain, unspecified Condition: Stable SOPHIA ALEMAN MD Sep 05, 2018 18:14
[2018-09-05] MEDS ORDERED: MELO15TA30 PO (18:48)
[2018-09-05] MEDS ORDERED: ASPI-817 PO (18:49)
[2018-09-05] MEDS ORDERED: BENA40TA56 PO (18:49)
[2018-09-05] MEDS ORDERED: HYDR-3980 PO (18:50)
[2018-09-05] MEDS ORDERED: METO-336 PO (18:51)
[2018-09-05] MEDS ORDERED: ZOLP5TAB7 PO (18:51)
[2018-09-05] MEDS ORDERED: CYCL10TA7 PO (18:52)
[2018-09-05] MEDS ORDERED: HYDR25TA6 PO (18:52)
[2018-09-05] MEDS ORDERED: GABA300C16 PO (18:53)
[2018-09-05] MEDS ORDERED: ATOR20TA38 PO (18:54)
[2018-09-05] MEDS ORDERED: FAMOTIDINE 20 MG INJ IV STA (19:39)
[2018-09-05] MEDS ORDERED: LIDOCAINE/MYLANTA 40 ML BTL PO STA (19:39)
[2018-09-05] MEDS ORDERED: FAMO-96 PO (19:43)
[2018-09-05 19:57] VITALS: BP 92/79; PULSE 71; RESP 16
[2018-09-05] MEDS ORDERED: FAMOTIDINE 20 MG TAB PO ONE (20:00)
== END 2018-09-05 20:06 | disposition home or self-care (01) ==
LOC: E/R 17:00
DX: R07.9 Chest pain, unspecified (principal); I10 Essential (primary) hypertension; Z79.82 Long term (current) use of aspirin; Z87.891 Personal history of nicotine dependence
CPT/HCPCS: 71045; 80048; 84484; 85025; Z7502; Z7610; 93005

== ENCOUNTER 2018-12-16 07:14 | Emergency (ER) | payer BC ==
[~2018-12-16] VITALS: Ht 162.6 cm; Wt 118.0 kg
[~2018-12-16 07:14] MED LIST changes: -ACET325T33 PO; -ALBU8.5H8 INH; -ASPI-650 PO; +ASPI-817 PO; +ATOR20TA38 PO; -BENZ-6 PO; -CARV25TA79 PO; -D-ME473S2 PO; -DIAZ5TAB PO; +GABA300C16 PO; +HYDR-3980 PO; +HYDR25TA6 PO; -IBUP800T48 PO; -LORA-186 PO; -MED4DP PO; +MELO15TA30 PO; +METO-336 PO; -NAPR-985 PO; -OMEG-135 PO; -TRAM50TA2 PO; -VIGA BOTH EYES; +ZOLP5TAB7 PO
[2018-12-16 07:16] VITALS: Ht 162.6 cm; Wt 118.0 kg
--- NOTE | 2018-12-16 07:58 | ERD ---
ER Documentation Chief Complaint Chief Complaint pt is bib self with c/o chest pain starting on Sat now radiating to L arm HPI This is a 48-year-old female with a past medical history of hypertension, hyperlipidemia, chronic arthritis and pain who is presenting with 3 days of intermittent waxing and waning episodes of left-sided chest and arm pain. The patient reports that she noticed a aching sensation, pinpoint, just under her left breast, beginning approximately 3 days ago. This pain has gone away, but the patient reports waxing and waning migrating sore aching pain to the shoulder, left elbow and left hand. Symptoms are not consistent and not in all locations at once. The patient reports an episode of chest pain in 2010 that was reportedly related to stress. She had a cardiac catheterization performed at the time which showed clean arteries. The patient currently denies any chest pain. She is not short of breath. She has not had any nausea or vomiting. She is not had any lightheadedness or dizziness. She has not had any episodes of diaphoresis. The patient denies feeling sick recently. The patient denies fever or chills. The patient has had no headache or vision changes. The patient does not endorse neck or back pain. The patient denies abdominal pain. The patient denies changes to bowel movements or urination. The patient has had no focal deficits. The patient has had no weakness or numbness or tingling to the face or extremities. ROS All systems reviewed and are negative except as per history of present illness. Medications Home Meds Reported Medications Gabapentin* (Gabapentin*) 600 Mg Tablet, 600 MG PO TID, #90 TAB 12/16/18 Atorvastatin Calcium* (Atorvastatin Calcium*) 20 Mg Tablet, 20 MG PO QHS, #30 TAB 09/05/18 Hydrochlorothiazide* (Hydrochlorothiazide*) 25 Mg Tab, 25 MG PO DAILY, #30 TAB 09/05/18 Zolpidem Tartrate* (Zolpidem Tartrate*) 5 Mg Tablet, 5 MG PO QHS PRN for INSOMNIA, #30 TAB 09/05/18 Metoprolol Succinate* (Toprol XL*) 100 Mg Tab.sr.24h, 100 MG PO BID, #30 TAB 09/05/18 Hydrocodone/Acetaminophen ([place] 10-325 Tablet) 1 Each Tablet, 1 EACH PO TID, TAB 09/05/18 Aspirin* (Aspirin* EC) 81 Mg Tablet.dr, 81 MG PO DAILY, TAB 09/05/18 Benazepril Hcl* (Benazepril Hcl*) 40 Mg Tablet, 40 MG PO DAILY, #30 TAB 09/05/18 Discontinued Reported Medications Gabapentin* (Gabapentin*) 300 Mg Capsule, 300 MG PO TID, #90 CAP 09/05/18 Cyclobenzaprine Hcl* (Cyclobenzaprine Hcl*) 10 Mg Tablet, 10 MG PO DAILY, #60 TAB 09/05/18 Meloxicam* (Mobic*) 15 Mg Tablet, 15 MG PO DAILY, #30 TAB 09/05/18 Discontinued Scripts Famotidine* (Pepcid*) 20 Mg Tablet, 20 MG PO BID for 14 Days, TAB Prov:SOPHIA ALEMAN MD 09/05/18 Allergies Allergies: Coded Allergies: No Known Allergy (Verified , 12/16/18) PMhx/Soc History of Surgery: Yes (C SECTION 1998,LEFT ANKLE 1993) Anesthesia Reaction: No Hx Neurological Disorder: No Hx Respiratory Disorders: No Hx Cardiac Disorders: Yes (HTN,HYPERLIPIDEMIA) Hx Psychiatric Problems: No Hx Miscellaneous Medical Probl: Yes (CHRONIC PAIN) Hx Alcohol Use: No Hx Substance Use: No Hx Tobacco Use: No FmHx Family History: No diabetes Physical Exam Vitals Vital Signs Date Temp Pulse Resp B/P (MAP) Pulse Ox O2 O2 Flow FiO2 Time Delivery Rate 12/16/18 75 16 106/77 100 Room Air 08:22 (87) 12/16/18 97.7 72 18 133/82 100 07:16 (99) Physical Exam Const: No apparent distress, well-developed, well-nourished Head: Normocephalic, Atraumatic Eyes: Normal Conjunctiva. Extraocular movements intact. Pupils equal, round and reactive to light ENT: Normal External Ears, Nose and Mouth. Neck: Full range of motion. No meningismus. Resp: Clear to auscultation bilaterally, No wheezes, rales or rhonchi Cardio: Regular rate and rhythm. No murmurs, rubs or gallops Abd: Obese, soft, non tender, non distended. Normal bowel sounds Skin: No petechiae or rashes Back: No midline tenderness. No CVA tenderness Ext: No cyanosis, or edema Neur: Awake and alert, oriented 4. Cranial nerves intact. No facial droop. Normal strength, sensation and coordination. Psych: Normal Mood and Affect Result Diagram: 12/16/18 0811 12/16/18 0903 Results 24 hrs Laboratory Tests Test 12/16/18 08:11 12/16/18 09:03 White Blood Count 5.4 10^3/ul Red Blood Count 3.82 10^6/ul Hemoglobin 10.7 g/dl Hematocrit 34.5 % Mean Corpuscular Volume 90.3 fl Mean Corpuscular Hemoglobin 28.0 pg Mean Corpuscular Hemoglobin Concent 31.0 g/dl Red Cell Distribution Width 12.9 % Platelet Count 316 10^3/UL Mean Platelet Volume 9.8 fl Immature Granulocytes % 0.600 % Neutrophils % 54.0 % Lymphocytes % 31.9 % Monocytes % 7.0 % Eosinophils % 5.2 % Basophils % 1.3 % Nucleated Red Blood Cells % 0.0 /100WBC Immature Granulocytes # 0.030 10^3/ul Neutrophils # 2.9 10^3/ul Lymphocytes # 1.7 10^3/ul Monocytes # 0.4 10^3/ul Eosinophils # 0.3 10^3/ul Basophils # 0.1 10^3/ul Nucleated Red Blood Cells # 0.0 10^3/ul Prothrombin Time 12.6 Sec Prothrombin Time Ratio 1.0 INR International Normalized Ratio 0.93 Sodium Level 140 mmol/L Potassium Level 5.0 mmol/L Chloride Level 106 mmol/L Carbon Dioxide Level 28 mmol/L Anion Gap 6 Blood Urea Nitrogen 19 mg/dl Creatinine 0.82 mg/dl Est Glomerular Filtrat Rate mL/min > 60 mL/min Glucose Level 113 mg/dl Calcium Level 9.7 mg/dl Troponin I < 0.012 ng/ml B-Type Natriuretic Peptide 122 PG/ML Current Medications Medications Dose Sig/Rodney Start Time Status Last (Trade) Ordered Route PRN Stop Time Admin Dose Reason Admin Ketorolac 15 mg ONCE STAT 12/16/18 DC Tromethamine IM 10:44 (Toradol) 12/16/18 10:45 Procedures/MDM MDM The patient's presentation warrants further investigation. Previous medical records, if available, were reviewed. LABS The patient's laboratory testing was obtained and reviewed. No emergent treatment was required unless described below. CBC: No E/o systemic infection or severe anemia or thrombocytopenia Chemistry: No E/o severe acidosis or alkalosis or renal failure or diabetic ketoacidosis PT/INR: No E/o significant coagulopathy Troponin: No E/o acute ischemia BNP: No E/o heart failure EKG EKG read by me: Rate/Rhythm: Regular rate and rhythm at a rate of 80 bpm Intervals: Normal [place]: Normal Impression: No evidence of acute ischemia or arrhythmia IMAGING Imaging and Radiology interpretation reviewed. CXR FINDINGS: The heart and mediastinum are within normal limits. The lungs are clear. There is no pleural effusion or pneumothorax. IMPRESSION: No acute disease Electronically viewed and signed by Dylan Flower MD, on 12/16/2018 10:40 TREATMENT/DISPOSITION The patient's symptoms are most consistent with a musculoskeletal etiology. That said, this is a diagnosis of exclusion. A cardiac workup was performed. The patient's chest xray does not reveal pneumonia or pneumothorax or pleural effusions or pulmonary edema. The patient does not have a widened mediastinum and does not have signs or symptoms concerning for thoracic aortic aneurysm or dissection. The patient does not have pneumomediastinum or signs concerning for esophageal tear or rupture. The patient has no clinical or radiographic signs of pericardial effusion or tamponade. The patient does not have pneumoperitoneum and I have decreased suspicion of viscus perforation as possible referred pain. The patient does not have a history of heart failure and I have low suspicion for this. The patient does not have a diagnosis of COPD and is not wheezing today. The patient is not tachypneic or hypoxic. The patient is breathing comfortably and without pleuritic pain. The patient is not on hormonal therapy. The patient has no history of clotting or bleeding disorders. The patient has no calf tenderness. The patient has had no hemoptysis. I have decreased suspicion for PE. The patient's troponin and EKG are reassuring. I have low suspicion for acute coronary syndrome. The patient's HEART score is equal to or less than 3. This stratifies the patient into the low risk (<1%) group for an major adverse cardiac event within the next 30 days. Shared decision making was enacted. The risks and benefits of admission and discharge were discussed with the patient and it was ultimately decided that the patient would be discharged with close outpatient follow up and evaluation for functional testing within 72 hours. The patient was treated with Toradol. DISCHARGE Upon reevaluation of the patient, symptoms have improved. No emergent diagnoses were identified. At this time, I feel that the patient stable for discharge. The patient was instructed to follow-up with a primary care physician in 1-3 days. The patient will be given strict precautions with which to return to the emergency department. Prescriptions: Ibuprofen The patient's blood pressure was elevated at greater than 120/80 while in the emergency department. The patient was otherwise stable with no evidence of hypertensive urgency or emergency. The patient does not require admission for blood pressure control. I have discussed with the patient the risks of hypertension. I have instructed the patient to return to the ER for any new or worsening symptoms including chest pain, shortness of breath, headache, blurred vision, confusion, nausea, vomiting or LOC. I have advised the patient to follow up with the primary care physician for outpatient monitoring and treatment for hypertension in 1-3 days. Disclaimer: Inadvertent spelling and grammatical errors are likely due to EHR/dictation software use and do not reflect on the overall quality of patient care. Note that the electronic time recorded on this note does not necessarily reflect the actual time of the patient encounter. Departure Diagnosis: Primary Impression: Nonspecific chest pain Additional Impressions: Left arm pain Normocytic anemia Condition: Stable Patient Instructions: Chest Pain, Uncertain Cause Additional Instructions: Thank you for for coming to [facility] for your care today. Please ask your nurse or provider if you have questions about your care today and do not leave until all your questions have been answered. Please use any medications given as directed and follow-up with your doctor (or the doctor you were referred to) in the next 1-3 days. If you do not have a primary care doctor you may follow up at the [facility] or [facility] clinic (listed below). You may also use motrin and tylenol as needed for fever and/or pain unless instructed otherwise by your provider or nurse. Indications for more urgent follow-up have been discussed, but you may return to the Emergency Department at ANY time for any worrisome or worsening symptoms. If you have abdominal pain, please know that no test or exam you received is perfect and you should follow up within 8 hours for continued pain. If you had any imaging studies today, such as an X-Ray or CT Scan, these studies will be reviewed later by a radiologist. You will be called if there are important findings that were not identified today, so make sure the contact information you provided at registration is correct. If you received any narcotic pain control medicine today, such as Vicodin, Morphine or Dilaudid, your coordination and judgment may be affected for a number of hours. Please do not drive or operate heavy machinery, and you may want someone to assist you at home. If you were given a prescription for narcotic medication, be aware that it is very addictive- use sparingly and only if necessary. PLEASE SEEK FURTHER EVALUATION AND MANAGEMENT AT YOUR DOCTORS OFFICE WITHIN THE NEXT 1-3 DAYS. IT IS YOUR RESPONSIBILITY TO MAKE AN APPOINTMENT FOR FOLOW-UP CARE. IF YOU HAVE A PRIMARY DOCTOR, PLEASE CALL THEIR OFFICE TO SCHEDULE AN APPOINTMENT FOR FOLLOW UP. IF YOU DO NOT HAVE A PRIMARY DOCTOR YOU CAN CALL OUR PHYSICIAN REFERRAL HOTLINE AT IF YOU CAN NOT AFFORD TO SEE A PHYSICIAN YOU CAN CHOSE FROM THE FOLLOWING [facility] CLINICS: [facility] [address] [facility]. [facility] [address] [facility] [facility] [address] [facility]. [facility] [address] [facility]. [facility] [address] [facility]. [facility]. [address] TYRON GIRON MD Dec 16, 2018 07:58
[2018-12-16] MEDS ORDERED: GABA-526 PO (10:22)
[2018-12-16] MEDS ORDERED: KETOROLAC 15 MG INJ IM STA (10:44)
[2018-12-16] MEDS ORDERED: IBUP-1542 PO (10:55)
[2018-12-16 11:25] VITALS: BP 102/82; PULSE 74; RESP 18
== END 2018-12-16 11:25 | disposition home or self-care (01) ==
LOC: E/R 07:14
DX: R07.9 Chest pain, unspecified (principal); D64.9 Anemia, unspecified; M79.602 Pain in left arm; I10 Essential (primary) hypertension; Z87.891 Personal history of nicotine dependence
CPT/HCPCS: 36415; 71045; 80048; 83880; 84484; 85025; 85610; 93005; 96372; J1885; Z7502; Z7610

== ENCOUNTER 2019-05-19 16:06 | Emergency (ER) | payer BC ==
[~2019-05-19] VITALS: Ht 162.6 cm; Wt 122.0 kg
[~2019-05-19 16:06] MED LIST changes: +ACET500C5 PO; +ATOR40TA68 ORAL; +BACL10TA PO; +BENA20TA4 ORAL; +CYCL10TA7 ORAL; -CYCL10TA7 PO; +DICL100G37 TOP; +ERYT1OIN6 LEFT EYE; +GABA-526 PO; -GABA300C16 PO; +HYDR-3609 ORAL; +IBUP-1542 PO; -MELO15TA30 PO; +TRAZ-188 ORAL
[2019-05-19 16:10] VITALS: Ht 162.6 cm; Wt 122.0 kg
[2019-05-19] MEDS ORDERED: FAMOTIDINE 20 MG TAB PO STA (18:01)
[2019-05-19] MEDS ORDERED: LIDOCAINE/MYLANTA 40 ML BTL PO STA (18:01)
[2019-05-19 20:46] VITALS: BP 96/68; PULSE 88; RESP 17
== END 2019-05-19 20:56 | disposition home or self-care (01) ==
LOC: E/R 16:06
DX: R07.9 Chest pain, unspecified (principal); R10.13 Epigastric pain
CPT/HCPCS: 71045; 80048; 83880; 84484; 85025; 93005; Z7502; Z7610